=== PATIENT | female | born 2005 | race Caucasian/White ===

== ENCOUNTER 2024-04-10 16:24 | Outpatient (RCR) | payer BC, MEDICAID, SELFPAY ==
[2024-04-08 12:28] LABS: Hematocrit 35.8 % (37.0-47.0); Hemoglobin 12.3 g/dL (12.0-15.0)
[2024-04-08 13:17] LABS: HIV 1/2 Ab P24 Ag Result Negative (Negative)
[2024-04-09 11:10] LABS: Rapid Plasma Reagin Non-Reactive (NonReactive)
[2024-04-10] MEDS: RHO(D) IMMUNE GLOBULIN 300 MCG/2 ML SYRINGE IM (17:04)
== END 2024-07-07 23:59 | disposition home or self-care (01) ==
LOC: ANHLAB 16:24
PROVIDERS: Visit Provider Obstetrics & Gynecology
DX: Z11.4 Encounter for screening for human immunodeficiency virus [HIV] (principal); Z11.3 Encounter for screening for infections with a predominantly sexual mode of transmission; Z29.13 Encounter for prophylactic Rho(D) immune globulin; O36.0130 Maternal care for anti-D [Rh] antibodies, third trimester, not applicable or unspecified; Z3A.00 Weeks of gestation of pregnancy not specified
CPT/HCPCS: 36415; 85014; 85018; 85461; 86592; 86703; 86850; 86900; 86901; 90384; 96372; G0432; J2790

== ENCOUNTER 2024-05-23 15:29 | Outpatient (CLI) | payer BC, MEDICAID, SELFPAY ==
[2024-05-23] VITALS (7 sets, daily range): BP systolic 129–149; BP diastolic 74–85; PULSE 74–85; TEMP 36.6
[2024-05-23 16:05] LABS: Basophils Percent Auto 0.1 % (0.2-1.2); Eosinophils Percent Auto 0.4 % (0-4.4); Hematocrit 33.2 % (37.0-47.0); Hemoglobin 11.1 g/dL (12.0-15.0); Immature Granulocyte Absolute 0.02 K/mm3 (0.00-0.031); Immature Granulocyte Percent A 0.3 % (0-0.5); Lymphocytes Absolute Auto 1.18 K/mm3 (0.9-3.2); Lymphocytes Percent Auto 17.3 % (18.3-44.2); Mean Corpuscular HGB Conc 33.4 g/dl (32-36); Mean Corpuscular Volume 89.7 fl (80-100); Mean Platelet Volume 11.7 fl (7.4-10.4); Monocytes Absolute Auto 0.8 K/mm3 (0.1-0.6); Monocytes Percent Auto 11.6 % (2.6-8.5); Neutrophils Absolute Auto 4.8 K/mm3 (1.3-6.7); Neutrophils Percent Auto 70.3 % (45.5-73.1); Platelet Count Result 224 k/mm3 (150-375); Red Cell Distribution Width 13.2 % (11.5-14.5); White Blood Count 6.8 K/mm3 (4.5-10.0)
[2024-05-23 16:18] LABS: Alanine Aminotransferase 19 U/L (6-35); Albumin Level 3.4 g/dL (3.7-5.6); Alkaline Phosphatase 120 U/L (45-116); Anion Gap 9 mmol/L (4-12); Aspartate Amino Transferase 22 U/L (14-36); Bilirubin,Total 0.4 mg/dL (0.2-1.3); Calcium 8.7 mg/dL (8.9-10.7); Carbon Dioxide 20 mmol/L (22-30); Chloride 106 mmol/L (98-107); Estimated Glomerular Filt Rate > 60; Glucose 90 mg/dL (65-110); Potassium 3.3 mmol/L (3.4-5.0); Sodium 135 mmol/L (134-143); Uric Acid 4.5 mg/dL (3.0-5.9)
[2024-05-23 16:49] LABS: Add Urine Microscopic? YES; Appearance Urine Clear (Clear); Bacteria Urine 3+ /hpf; Bilirubin Urine Negative (Negative); Blood Urine Negative (Negative); Color Urine Yellow (Yellow); Glucose Urine UA Negative (Negative); Ketones Urine Negative (Negative); Leukocyte Esterase Ur 1+ LEU/UL (Negative); Nitrate Urine Negative (Negative); Protein Urine Negative (Negative); RBC Urine 0-2 /hpf (0-2); Specific Grav Ur 1.007 (1.001-1.035); Squamous Epithelial Cell Urine Few /hpf (Few); Urobilinogen Urine 0.2 mg/dL (<2.0)
[2024-05-23 16:51] LABS: Creatinine Urine 50.9 mg/dL; Total Protein Urine Random 17 mg/dL; Ur Ttl Prot Creatinine Ratio 0.33 mg/mg (0-0.20)
[2024-05-23 17:17] LABS: Blood Urea Nitrogen < 2 mg/dL (8-21)
== END 2024-05-23 17:10 | disposition home or self-care (01) ==
LOC: ANHOBOP 15:36 → ANHOBPP 15:38
PROVIDERS: Visit Provider Obstetrics & Gynecology
DX: O16.9 Unspecified maternal hypertension, unspecified trimester (principal); Z3A.00 Weeks of gestation of pregnancy not specified
CPT/HCPCS: 36415; 59025; 80053; 81001; 82570; 84156; 84550; 85025; 87086; 99199

== ENCOUNTER 2024-06-06 | Inpatient (IN) | payer BC, MEDICAID, SELFPAY ==
[2024-06-06] VITALS (66 sets, daily range): BP systolic 97–153; BP diastolic 56–99; PULSE 56–125; RESP 18; TEMP 36.1–37.1; O2SAT 66–100; BMI 33.6
--- NOTE | 2024-06-06 00:17 | LDADM ---
This patient, Abena Gonzalez, was admitted to Labor/Delivery/Recovery 105 on 06/06/24 at 00:00. Plans for labor, pain management and were discussed with patient. Patient/family oriented to hospital policies and general routines including ID bracelet, bed and alarms, visiting hours, pain management, procedures, bathroom and other care routines, personal items, smoking policy, room service/diet and guest tray routines, security routines, and visiting hours. Patient/Family are encouraged to report perceived risks to care and to ask questions if they do not understand what they are told or what they should do. See OBIX for further documentation.
[2024-06-06] MEDS: miSOPROStol 25 MCG TABLET 50 MCG BUCCAL (00:54)
[2024-06-06 00:59] LABS: Basophils Percent Auto 0.2 % (0.2-1.2); Eosinophils Percent Auto 0.4 % (0-4.4); Hematocrit 32.1 % (37.0-47.0); Hemoglobin 11.1 g/dL (12.0-15.0); Immature Granulocyte Absolute 0.05 K/mm3 (0.00-0.031); Immature Granulocyte Percent A 0.5 % (0-0.5); Lymphocytes Absolute Auto 1.65 K/mm3 (0.9-3.2); Lymphocytes Percent Auto 16.4 % (18.3-44.2); Mean Corpuscular HGB Conc 34.6 g/dl (32-36); Mean Corpuscular Hemoglobin 30.7 pg (26-34); Mean Corpuscular Volume 88.7 fl (80-100); Mean Platelet Volume 12.4 fl (7.4-10.4); Monocytes Absolute Auto 1.1 K/mm3 (0.1-0.6); Monocytes Percent Auto 10.8 % (2.6-8.5); Neutrophils Absolute Auto 7.2 K/mm3 (1.3-6.7); Neutrophils Percent Auto 71.7 % (45.5-73.1); Platelet Count Result 234 k/mm3 (150-375); Red Blood Count 3.62 M/mm3 (4.2-5.4); Red Cell Distribution Width 12.8 % (11.5-14.5); White Blood Count 10.1 K/mm3 (4.5-10.0)
[2024-06-06 01:28] LABS: HIV 1/2 Ab P24 Ag Result Negative (Negative)
[2024-06-06] MEDS: ONDANSETRON INJ 4 MG/2 ML VIAL IV PUSH ×2 (04:38→09:48)
[2024-06-06] MEDS: LACTATED RINGERS 1,000 ML 125 ML IV CONT ×2 (05:22→09:48)
[2024-06-06] MEDS: OXYTOCIN 30 UNITS/NS 500 ML 30 UNITS/500 ML BAG IV CONT (05:22)
[2024-06-06 06:33] LABS: Rapid Plasma Reagin Non-Reactive (NonReactive)
--- NOTE | 2024-06-06 08:35 | P.HP_ITS ---
H&P: HPI History of Present Illness Date/Time: 06/06/24 08:35 Chief Complaint: growth restriction Narrative: Patient is a 18 year old who presents for medical induction of labor indicated for growth restriction. Most recent growth US was 4% at 35 weeks. Patient has had normal testing and umbilical artery doppler testing. Her has been otherwise complicated by gestational hyp ertension. Patient is asymptomatic. Good movment, no bleeding or LOF. Review of Systems Review of Systems: All systems reviewed & are unremarkable except as noted in HPI and below PMFSH Family History Family History Other Cancer Cystic fibrosis Social History Social History Smoking status: Current every day smoker Tobacco type: cigarettes Second hand tobacco smoke exposure: No Additional smoking assessment comments: Marijuana twice a day Substance use: current Do You Feel Safe in your Home?: Yes Lack of Transportation: No Lack of Food: Never True Current Housing: I Have Housing Concerned About Future Housing: No Difficulty Paying Gas/Electric Bills: No Difficulty Paying for Meds: No Currently Unemployed: No Education: High School Diploma/GED Difficulty w/ Childcare or Family Care: No Spiritual care concerns: No Meds Home Medications and Allergies Home Medications Medication Instructions Recorded Confirmed Type ondansetron 8 mg disintegrating 8 mg PO Q4-5H PRN Nausea And 05/26/24 06/06/24 History tablet Vomiting vits no.126-ferrous fum 1 tablet PO DAILY 05/26/24 06/06/24 History 28 mg iron-folic acid 800 mcg tablet (Classic ) Allergies Allergy/AdvReac Type Severity Reaction Status Date / Time No Known Allergies Allergy Verified 06/06/24 00:18 Vital Signs Vital Signs - 24 hr 06/06/24 00:15 06/06/24 00:39 06/06/24 01:00 Pulse Rate 75 81 Blood Pressure 140/86 146/89 H Oxygen Delivery Room Air 06/06/24 01:31 06/06/24 02:00 06/06/24 02:30 Pulse Rate 80 68 81 Blood Pressure 141/80 H 153/93 H 153/92 H Oxygen Delivery 06/06/24 03:00 06/06/24 03:30 06/06/24 04:00 Pulse Rate 81 73 62 Blood Pressure 130/77 124/80 146/94 H Oxygen Delivery 06/06/24 04:30 06/06/24 05:00 06/06/24 05:30 Pulse Rate 60 66 72 Blood Pressure 140/88 140/95 H 142/89 H Oxygen Delivery 06/06/24 06:12 06/06/24 06:30 06/06/24 07:01 Pulse Rate 70 62 65 Blood Pressure 140/88 132/91 H 133/95 H Oxygen Delivery 06/06/24 07:30 06/06/24 08:01 Pulse Rate 66 77 Blood Pressure 129/80 97/56 L Oxygen Delivery Exam Const: General: comfortable and no acute distress HENMT: Mouth: Yes moist mucous membranes Resp: Effort & Inspection: normal respiratory effort Cardio: Rate: regular rate : Other: SVE /-1, AROM of clear fluid, IUPC placed Psych: Mental Status: mental status grossly normal H&P: Results Labs Labs: Short CBC 06/06/24 Range/Units 00:11 WBC 10.1 H (4.5-10.0) K/mm3 Hgb 11.1 L (12.0-15.0) g/dL Hct 32.1 L (37.0-47.0) % Plt Count 234 (150-375) k/mm3 Assessment and Plan Assessment and plan (1) Gestational hypertension: Code(s): O13.9 - Gestational [-induced] hypertension without significant proteinuria, unspecified trimester Status: Acute Assessment and Plan: - BP mild range - patient asymptomatic (2) affected by growth restriction: Code(s): O36.5990 - Maternal care for other known or suspected poor growth, unspecified trimester, not applicable or unspecified Status: Acute Assessment and Plan: - EFW 4% at 35 weeks, UADs wnl weekly (3) Encounter for induction of labor: Code(s): Z34.90 - Encounter for supervision of normal , unspecified, unspecified trimester Status: Acute Assessment and Plan: - pitocin per protocol - AROM of clear fluid, IUPC placed - FHR category i
[2024-06-06] MEDS: TERBUTALINE SULFATE 1 MG/ML VIAL 0.25 MG SUB-Q (09:25)
[2024-06-06] MEDS: OXYTOCIN 30 UNITS/NS 500 ML 30 UNITS/500 ML BAG 125 UNITS IV CONT (13:24)
[2024-06-06] MEDS: LIDOCAINE HCL 1% LOCAL INJ 20 ML VIAL (13:24)
--- NOTE | 2024-06-06 15:05 | OBPPTRN ---
Patient transferred to post room #279 via wheelchair. Support person present. Oriented to unit, room, information board, rooming in, admission packet and security measures. Patient verbalizes understanding.
--- NOTE | 2024-06-06 16:44 | PC.NURSE ---
1615. Introductions were made, then consulted with patient to assess needs related to . Mother led the conversation with her?plans to feed?her infant and the?experience so far. Mother states that she would no longer like to breastfeed and instead plans to bottle feed . Mom states that she will be going back to work at some point and it is too much for her to try and think about . This RN validated moms feelings and desires and explained to her that we are here to support her decision as a unit. This RN explained that we are here to help her navigate her feeding journey whatever she chooses, and she can call us if she changes her mind. Mother verbalized understanding. Reported to the Primary RN.
[2024-06-06] MEDS: DOCUSATE SODIUM 100 MG CAPSULE PO (17:36)
--- NOTE | 2024-06-06 18:02 | PM.OBPRVD ---
OB - Vaginal Delivery Note Procedure Delivery date: 06/06/24 Events: Gestational Hypertension and Intrauterine Growth Restriction (IUGR) Induction method: Per Misoprostol Protocol Delivery augmentation: Rupture of Membranes and Pitocin Delivery monitor: Internal FHT and Internal Uterine Route of delivery: Episiotomy description: None Delivery repair: vicryl Specimen: No Quantitative Blood Loss (ml): 150 Anesthesia type: Local Disposition: Floor Complications: No immediate complications Narrative: See H&P and notes for details on patient's admission and labor. She progressed to complete cervical dilation and at the appropriate time began pushing. With adequate expulsive efforts by the mother, the baby's head was delivered without difficulty. Nuchal cord was not present. The baby's right shoulder was anterior and delivered under the pubic symphysis without difficulty. The posterior shoulder and the rest of the baby delivered without difficulty. The umbilical cord was doubly clamped and cut after 60 seconds of delayed cord clamping. Care of the infant was then assumed by the nursing staff. Baby Date of : 06/06/24 Gestational Age by Date: 37 gender: Female Weight (pounds): 5 Weight (ounces): 3 presentation: vertex position: Left Occiput Anterior Placenta delivery description: Expressed Cord Vessel Description: 3 Vessels and Delayed Cord Clamping
[2024-06-07 04:15] VITALS: BP 130/87; PULSE 59; RESP 16; TEMP 36.4; O2SAT 100
[2024-06-07 05:05] LABS: Hematocrit 25.9 % (37.0-47.0); Hemoglobin 8.9 g/dL (12.0-15.0)
[2024-06-07 08:10] VITALS: BP 138/88; PULSE 69; RESP 18; TEMP 36.4; O2SAT 99
[2024-06-07] MEDS: DOCUSATE SODIUM 100 MG CAPSULE PO ×2 (09:05→16:32)
[2024-06-07] MEDS: POLYSACCHARIDE IRON COMPLEX 150 MG CAPSULE PO ×2 (09:05→16:32)
[2024-06-07] MEDS: TETANUS,DIPHTHERIA,AC PERTUSSIS ADULT (0.5 ML) BOOSTRIX IM (11:15)
[2024-06-07] MEDS: RHO(D) IMMUNE GLOBULIN 300 MCG/2 ML SYRINGE IM (11:15)
[2024-06-07 12:14] VITALS: BP 129/81; PULSE 76; RESP 16; TEMP 36.4; O2SAT 100
[2024-06-07 15:00] VITALS: BP 143/77
[2024-06-07 20:58] VITALS: BP 132/88; PULSE 89; RESP 18; TEMP 36.8; O2SAT 98
[2024-06-08 00:43] VITALS: BP 122/73; PULSE 78; RESP 18; TEMP 37; O2SAT 99
[2024-06-08 04:58] VITALS: BP 126/88; PULSE 66; RESP 16; TEMP 36.9; O2SAT 98
[2024-06-08 07:15] VITALS: BP 126/83; PULSE 78; RESP 18; TEMP 36.7; O2SAT 99
--- NOTE | 2024-06-08 08:18 | PM.OBPNVD ---
OB - PN: Subj Subjective Date/time seen: 06/08/24 08:18 Patient comments: no complaints, pain well controlled and tolerating diet OB - PN: Obj Data Labs 06/07/24 04:20 Labs: Laboratory Results - last 24 hr 06/07/24 04:20 Blood Type O Negative Antibody Screen TNP Screen Negative Baby's Blood Type A pos Baby's ILA Positive Doses of RhIg Required 1 OB - PN A/P Plan day: 2 Plan: routine care and discharge home Time Spent With Patient Time: Total time spent is greater than 50% in coordination of care (as documented) at patient's floor/unit and/or counseling patient: Exam Const: General: comfortable and no acute distress Resp: Effort & Inspection: normal respiratory effort Auscultation: no rales, no rhonchi and no wheezes Cardio: Rate: regular rate Heart sounds: no click, no murmurs and no rubs GI: GI Palp: Yes Soft to palpation and No Tenderness to palpation present (GI) Auscultation: normal bowel sounds Extrem: General: normal to inspection, no pedal edema and no calf tenderness
--- NOTE | 2024-06-08 08:18 | PM.OBDSVD ---
DS: Admitting Diagnosis Discharge Date June 08, 2024 Admitting Diagnosis term DS: Discharge Diagnosis Discharge Diagnosis (1) Post term , delivered: Code(s): O48.0 - Post-term Status: Acute OB - DS: Summary OB Procedures : None OB Procedures Intrapartum: Spontaneous Vag Delivery OB Procedures: : None Peripartum Data Episiotomy description: None Time Spent with Patient Time attestation: Total time spent providing and/or coordinating discharge services: DS: Data Data Completed and Pending Pending studies at discharge: Pending at discharge 06/06/24 12:45 Surgical [PTH] Routine Labs on day of discharge: Labs from last 24 hours 06/07/24 04:20 Blood Type O Negative Antibody Screen TNP Screen Negative Baby's Blood Type A pos Baby's ILA Positive Doses of RhIg Required 1 Discharge Plan Discharge Discharging Clinician: Moreno Gamez Patient Disposition: Home, Self-Care Activity: pelvic rest Diet: regular Patient Instructions: Antibiotic Form Stand Alone Forms: General Discharge Information Follow-up/Referrals: Moreno Gamez MD [Physician] - Discharge Medications: Continued ondansetron 8 mg tablet,disintegrating 8 mg PO Q4-5H PRN (Reason: Nausea And Vomiting) Classic 28 mg iron- 800 mcg Tablet 1 tablet PO DAILY Date of admission: 06/06/24 00:00 Primary Care Provider: UNKNOWN,DOCTOR Admitting Provider: Nikolay Capone Attending physician on admission: Nikolay Capone Condition: Stable
[2024-06-08] MEDS: DOCUSATE SODIUM 100 MG CAPSULE PO ×2 (08:49→17:19)
[2024-06-08] MEDS: POLYSACCHARIDE IRON COMPLEX 150 MG CAPSULE PO ×2 (08:49→17:19)
[2024-06-08 12:49] VITALS: BP 131/75; PULSE 70; RESP 16; TEMP 36.3; O2SAT 100
[2024-06-08 15:15] VITALS: BP 143/91
[2024-06-09 08:13] VITALS: BP 131/91; PULSE 63; RESP 18; TEMP 36.4; O2SAT 100
== END 2024-06-08 17:25 | disposition home or self-care (01) | DRG 807 ==
LOC: ANHOB2 06-08 13:09 → ANHLDR 06-09 09:55 → ANHOB2 06-09 09:55
PROVIDERS: Admitting Provider Obstetrics & Gynecology; Visit Provider Obstetrics & Gynecology
DX: O36.5930 Maternal care for other known or suspected poor fetal growth, third trimester, not applicable or unspecified (principal); Z37.0 Single live birth; Z3A.37 37 weeks gestation of pregnancy; O13.4 Gestational [pregnancy-induced] hypertension without significant proteinuria, complicating childbirth; O70.1 Second degree perineal laceration during delivery
CPT/HCPCS: 36415; 85014; 85018; 85025; 85461; 86592; 86703; 86850; 86880; 86900; 86901; 88307; 90384; 90715; A9270; G0432; J2003; J2405; J2590; J2790; J3105; J7120